=== PATIENT | male | born 1985 | race Caucasian/White ===

== ENCOUNTER 2017-12-17 06:03 | Emergency (ER) | payer MEDICAID ==
[~2017-12-17] VITALS: Ht 177.8 cm; Wt 72.7 kg
[2017-12-17] MEDS ORDERED: HYDROCODONE/ACETAMINOPHEN 5-325 MG TABLET PO ONE (06:45)
[2017-12-17] MEDS ORDERED: KETOROLAC TROMETHAMINE 60 MG/2 ML VIAL IM ONE (06:45)
[2017-12-17 08:07] VITALS: BP 146/67
== END 2017-12-17 08:23 | disposition home or self-care (01) ==
LOC: EMS 06:05
DX: S83.91XA Sprain of unspecified site of right knee, initial encounter (principal); F15.90 Other stimulant use, unspecified, uncomplicated; V00.131A Fall from skateboard, initial encounter; Y93.51 Activity, roller skating (inline) and skateboarding; Y92.89 Other specified places as the place of occurrence of the external cause; Y99.8 Other external cause status
CPT/HCPCS: 29505; 73564; 96372; 99284; J1885

== ENCOUNTER 2018-11-25 18:36 | Emergency (ER) | payer MEDICAID ==
[~2018-11-25] VITALS: Ht 177.8 cm; Wt 81.8 kg
[2018-11-25] MEDS ORDERED: PENICILLIN G BENZATHINE LA 2,400,000 UNITS/4 ML SYRINGE IM ONE (21:15)
[2018-11-25 22:08] VITALS: BP 135/76
== END 2018-11-25 22:10 | disposition home or self-care (01) ==
LOC: EMS 18:38
DX: N48.89 Other specified disorders of penis (principal); F15.90 Other stimulant use, unspecified, uncomplicated
CPT/HCPCS: 36415; 86592; 96372; 99283; J0561